=== PATIENT | female | born 1985 | race Caucasian/White ===

== ENCOUNTER 2017-01-12 19:24 | Emergency (ER) | payer OTHER ==
[~2017-01-12] VITALS: Ht 172.7 cm; Wt 95.0 kg
[2017-01-13] MEDS ORDERED: ONDANSETRON 4MG ODT PO ONE (03:00)
[2017-01-13] MEDS ORDERED: KETOROLAC 30MG/ML VIAL IM ONE (03:00)
[2017-01-13 07:08] VITALS: BP 118/60
== END 2017-01-13 07:05 | disposition home or self-care (01) ==
LOC: ER 21:39
DX: S39.012A Strain of muscle, fascia and tendon of lower back, initial encounter (principal); S16.1XXA Strain of muscle, fascia and tendon at neck level, initial encounter; Z98.890 Other specified postprocedural states; V43.52XA Car driver injured in collision with other type car in traffic accident, initial encounter; Y93.89 Activity, other specified; Y92.488 Other paved roadways as the place of occurrence of the external cause
CPT/HCPCS: 71020; 72040; 72100; 81025; 96372; 99284; J1885; Q0162